=== PATIENT | female | born 2000 | race Caucasian/White ===

== ENCOUNTER 2022-12-07 11:15 | Inpatient (IN) | payer OTHER ==
[~2022-12-07 11:15] MED LIST: CITRIC ACID/SODIUM CITRATE 30 ML UNIT-DOSE CUP PO ONE; ELECTROLYTE-148 SOLN 500 ML IV SCH
[2022-12-07] MEDS ORDERED: CITRIC ACID/SODIUM CITRATE 30 ML UNIT-DOSE CUP PO ONE (12:37)
[2022-12-07 12:44] VITALS: BMI 23.8
[2022-12-07] MEDS ORDERED: ELECTROLYTE-148 SOLN 1,000 ML IV SCH (12:45)
[2022-12-07] MEDS ORDERED: morphine SULFATE (PF) 1 MG/2 ML SYRINGE ONE (14:11)
[2022-12-07] MEDS ORDERED: FENTANYL CITRATE/PF 50 MCG/ML VIAL ONE (14:11)
[2022-12-07] MEDS ORDERED: ONDANSETRON 4 MG/2 ML VIAL ONE (14:47)
[2022-12-07] MEDS ORDERED: DEXAMETHASONE SOD PHOSPHATE 4 MG/1 ML VIAL ONE (14:47)
[2022-12-07] MEDS ORDERED: OXYTOCIN 10 UNITS/ML VIAL ONE ×2 (14:47→15:14)
[2022-12-07 15:30] LABS: CORD BASE EXCESS -1.7 mmol/L (0-2); CORD HCO3 24.1 mmHg (20-29); CORD PCO2 44.8 mmHg (30-78); CORD pH 7.349 (7.14-7.44)
[2022-12-07] MEDS ORDERED: METHYLERGONOVINE MALEATE 0.2 MG/1 ML AMP IM PRN (15:31)
[2022-12-07] MEDS ORDERED: ACETAMINOPHEN 325 MG TABLET (FP) PO PRN (15:31)
[2022-12-07 15:33] LABS: CORD HCO3 24.9 mmHg (20-29); CORD PCO2 50.3 mmHg (30-78); CORD pH 7.312 (7.14-7.44)
[2022-12-07] MEDS ORDERED: ACETAMINOPHEN 1000 MG/100 ML BAG IVPB PRN (15:33)
[2022-12-07] MEDS ORDERED: ONDANSETRON 4 MG/2 ML VIAL IVPUSH PRN (15:39)
[2022-12-07] MEDS ORDERED: morphine SULFATE/PF 1 MG/2 ML (2cc Syringe - QUVA) EP ONE (15:39)
[2022-12-07] MEDS ORDERED: OXYTOCIN 20 UNITS in 0.9% NS 20 UNIT/1,000 ML INFUS.BAG IV SCH (15:45)
[2022-12-07] MEDS ORDERED: OXYTOCIN 20 UNITS in 0.9% NS 20 UNIT/1,000 ML INFUS.BAG IV ONE (17:32)
[2022-12-07] MEDS: CEFAZOLIN 1 GM in DEXTROSE 5%-WATER - 50 ML IVPB SCH (22:00)
[2022-12-08] MEDS ORDERED: oxyCODONE HCL 5 MG TABLET PO PRN ×2 (03:31)
[2022-12-08] MEDS: CEFAZOLIN 1 GM in DEXTROSE 5%-WATER - 50 ML IVPB SCH ×2 (06:05→13:53)
[2022-12-08 08:41] LABS: BASO % 0.3 % (0-2.0); EOS % 0.3 % (0-4.5); HEMATOCRIT 31.1 % (32.4-45.2); HEMOGLOBIN 10.8 GM/dL (10.7-15.3); LYMPH % 15.7 % (8-40); MCHC 34.9 g/dl (32.0-36.0); MEAN CELL VOLUME 94.7 fl (80-96); MEAN PLT VOLUME 10.3 fl (7.5-11.1); MONO % 6.9 % (3.8-10.2); NEUT % 76.8 % (42.8-82.8); PLATELET COUNT 116 10^3/uL (134-434); RBC 3.28 M/mm3 (3.60-5.2); RDW 12.8 % (11.6-15.6); WHITE BLOOD COUNT 10.1 K/mm3 (4.0-10.0)
[2022-12-08] MEDS: ENOXAPARIN NA (PORCINE) 40 MG/0.4 ML DISP.SYRIN SQ SCH (09:44)
[2022-12-08] MEDS: IBUPROFEN 600 MG TABLET (FP) PO PRN ×3 (10:32→20:50)
[2022-12-08] MEDS ORDERED: BISACODYL 10 MG SUPP.RECT RC PRN (15:31)
[2022-12-08] MEDS: SIMETHICONE 80 MG TAB.CHEW (FP) PO PRN (20:51)
[2022-12-09] MEDS: SIMETHICONE 80 MG TAB.CHEW (FP) PO PRN ×2 (02:51→21:33)
[2022-12-09] MEDS: IBUPROFEN 600 MG TABLET (FP) PO PRN ×4 (02:51→21:33)
[2022-12-09] MEDS: ENOXAPARIN NA (PORCINE) 40 MG/0.4 ML DISP.SYRIN SQ SCH (11:42)
[2022-12-10] MEDS: IBUPROFEN 600 MG TABLET (FP) PO PRN (06:44)
[2022-12-10] MEDS: SIMETHICONE 80 MG TAB.CHEW (FP) PO PRN (06:46)
[2022-12-10 09:15] LABS: BASO % 0.4 % (0-2.0); EOS % 1.7 % (0-4.5); HEMATOCRIT 31.1 % (32.4-45.2); HEMOGLOBIN 10.9 GM/dL (10.7-15.3); MCHC 34.9 g/dl (32.0-36.0); MEAN CELL VOLUME 94.4 fl (80-96); MEAN PLT VOLUME 9.1 fl (7.5-11.1); MONO % 5.1 % (3.8-10.2); NEUT % 65.8 % (42.8-82.8); PLATELET COUNT 171 10^3/uL (134-434); RDW 12.9 % (11.6-15.6); WHITE BLOOD COUNT 6.3 K/mm3 (4.0-10.0)
[2022-12-10] MEDS: ENOXAPARIN NA (PORCINE) 40 MG/0.4 ML DISP.SYRIN SQ SCH (12:25)
[2022-12-10 12:37] VITALS: RESP 16
[2022-12-10 12:43] VITALS: BP 129/88; PULSE 80; TEMP 99.2
== END 2022-12-10 13:23 | disposition home or self-care (01) | DRG 540 ==
LOC: JLDR 11:15 → J3W 17:19
PROVIDERS: ADMIT Obstetrics & Gynecology; ATTEND Obstetrics & Gynecology
PROC: 10D00Z1 Extraction of Products of Conception, Low, Open Approach (ICD-10-PCS; principal; 2022-12-07)
DX: O32.8XX0 Maternal care for other malpresentation of fetus, not applicable or unspecified (principal); Z3A.39 39 weeks gestation of pregnancy; Z37.0 Single live birth
CPT/HCPCS: 36415; 36600; 59025; 82803; 85025; 86850; 86900; 86901; 88307-TC; 94010